=== PATIENT | female | born 2000 | race Caucasian/White ===

== ENCOUNTER 2022-06-29 18:36 | Outpatient (CLI) | payer BC, SELFPAY | END 2022-06-29 18:37 | disposition home or self-care (01) | LOC: LKVREF 07-08 09:40 | PROVIDERS: Visit Provider Student in an Organized Health Care Education/Training Program | DX: R10.9 Unspecified abdominal pain (principal); R11.2 Nausea with vomiting, unspecified | CPT/HCPCS: 87086 ==

== ENCOUNTER 2023-05-03 16:45 | Outpatient (RCR) | payer BC, SELFPAY ==
--- NOTE | 2023-03-07 15:57 | PT.OPE ---
[facility] Eval Start: 03/07/23 15:55 Freq: Status: Active Protocol: Document 03/07/23 15:56 LSL (Rec: 03/07/23 15:56 LSL [id number]) E-signed By Renu Gan PT Physical Therapy Outpatient Evaluation Insurance Information Insurance Name Medicaid,[employer] Medical Diagnosis quadriceps and patellar tendonitis Treating Diagnosis pain Referring MD Brown Subjective Subjective Pt. reports she's been having pain in her L knee for about 3 weeks. Her left knee has been locking and feeling like it subluxes since middle school. It began hurting 3 weeks ago. I can't even sit with my leg folded under me or cross legged. If I try and do that my boyfriend has to straighten my legs. I can't squat or kneel and quit my [employer] job because it just isn't possible. 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 Pt. has pain around the patellofemoral joint but less on the lateral aspect and intermittently in the posterior knee. The back of the knee is worse after being straight for a prolonged time. It doesn't bother me too much during the day but then will really throb at night. I was taking ibuprofen when I really need it otherwise I don't take it because I get ulcers. Pain Comments 5/10 best, 8/10 worst Date of Last Physician Visit 02/23/23 Date of Next Physician Visit 04/06/23 Current Work Status Unemployed Occupation will be starting a new job soon Precautions Weight Bearing Status Full Weight Bearing Therapy Limitations/Systems Review Not Limited Objective Range of Motion B WFL Strength Hip - L gluts 4+/5, all others B 5/5 Knee - B HS 5/5, R quad 5/5, L quad 4-/5 with pain Ankle - L PF 3/5 with pain Swelling MEASUREMENTS L R 2 above MP 43 cm 43.5 cm joint line 36 cm 36 cm 6 below MP 37 cm 36 cm Palpation L patellar and quadriceps tendon very tender, mild edema about L PF joint Balance & Gait Mildly impaired R compared to L - firm surface E/O and E/C Posture B patella medially tilted Functional Test Performed & Score Squat - WFL with assistance needed from UE if she goes into a deep squat, clicking in the PF joint with standing back up Assessment Assessment/Impression Pt. is a 22 y/o female who presents with mild swelling about the L knee and mild weakness in the L hip and moderate weakness in the plantar flexors with L knee pain and acute point tenderness over the quadriceps and patellar tendon. She will benefit from care to improve her L LE strength and using NM re-ed for proprioceptive input and therex. This is a more acute on chronic aggravation of symptoms she has been experiencing for 5+ years. Primary Functional Limitations squatting, kneeling, bending her knees even in open chain positions Plan of Care Rehabilitation Potential Good Physical Therapy Goals SHORT TERM GOALS: (3 weeks) 1. Pt. participating in strengthening program without increasing her pain. 2. Pt. able to squat with pain less than 4/10. 3. Pt. to have hip strength 5/ 5 to assist in supporting her knee. PENITENTIARY GOALS: (4+ weeks) 1. Pt. to have 5/5 gastroc strength to decrease pain behind her knee. 2. Pt. able to tolerate kneeling on soft surfaces. 3. Pt. able to squat with pain less than 2/10. Coordination/Communication With Referral Source Treatment Plan/Direct Interventions Neuromuscular Re-ed,Self-Care/ Home Management,Therapeutic Exercises Frequency/Duration 1x/week 6 weeks Patient Will Be Discharged From Therapy Completion of LTG(s),Skills Plateau,Independent w/HEP, Independently Progressing Evaluation Billing Untimed Code Treatment Minutes 35 Complexity Low Certification Information Initial Certification Date 03/07/23 Ending Certification Date 05/05/23 Provider Signature Shows Agreement With POC & Medical Necessity Physician Signature & Date Requested Please Sign/Date Here Physician Comment/Change : Physician NPI Number #
== END 2023-07-04 14:27 | disposition home or self-care (01) ==
PROVIDERS: Visit Provider Physician Assistant Surgical
DX: M76.50 Patellar tendinitis, unspecified knee (principal); M76.899 Other specified enthesopathies of unspecified lower limb, excluding foot; Z51.89 Encounter for other specified aftercare
CPT/HCPCS: 97032; 97110; 97140; 97161

== ENCOUNTER 2025-01-12 09:48 | Outpatient (CLI) | payer BC, SELFPAY | END 2025-01-12 09:49 | disposition home or self-care (01) | LOC: NFLDREF 01-15 01:14 | PROVIDERS: Visit Provider Physician Assistant | DX: R30.0 Dysuria (principal) | CPT/HCPCS: 87086 ==

== ENCOUNTER 2025-01-21 13:50 | Outpatient (CLI) | payer BC, SELFPAY | END 2025-01-21 13:51 | disposition home or self-care (01) | PROVIDERS: Visit Provider Physician Assistant | DX: R30.0 Dysuria (principal); N91.2 Amenorrhea, unspecified; R10.9 Unspecified abdominal pain; Z11.3 Encounter for screening for infections with a predominantly sexual mode of transmission | CPT/HCPCS: 87086; 87491; 87591 ==